=== PATIENT | male | born 1980 | race Caucasian/White ===

== ENCOUNTER 2024-09-17 08:25 | Emergency (ER) | payer BC, SELFPAY ==
[2024-09-17 08:39] VITALS: BP 138/78
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
[2024-09-17 11:14] VITALS: BP 137/85; BMI 32.1
[2024-09-17] MEDS: NSS 1000 IV (11:15)
[2024-09-17 11:23] LABS: % Basophils 0.3 % (0-2); % Immature Granulocytes 0.6 % (0-0.5); % Lymphocytes 2.4 % (20.5-51.1); % Monocytes 6.5 % (1.7-9.3); % Neutrophils 90.2 % (42.2-75.2); Absolute Immature Granulocytes 0.1 10^3/uL (0-0.05); Absolute Lymphocytes 0.2 10^3/uL (1.2-3.4); Absolute Monocytes 0.5 10^3/uL (0.1-0.6); Absolute Neutrophils 7.2 10^3/uL (1.4-6.5); Hematocrit 47.3 % (39.0-52.0); Hemoglobin 16.5 g/dL (13.0-18.0); Mean Corp Hgb Conc. 34.9 g/dL (33.0-37.0); Mean Corpuscular Hgb 32.2 pg (27.0-31.0); Mean Corpuscular Volume 92.4 fL (80.0-94.0); Mean Platelet Volume 10.7 fL (7.4-10.4); Nucleated Red Blood Cells % 0 % (-); Platelet Count 174 10^3/uL (130-400); Red Blood Cell Count 5.12 10^6/uL (4.70-6.10); White Blood Cell Count 7.9 10^3/uL (4.8-10.8)
[2024-09-17 11:36] VITALS: BP 118/72
[2024-09-17 11:40] LABS: ALT (SGPT) 26 U/L (0-50); AST (SGOT) 27 U/L (17-59); Albumin 4.5 g/dl (3.5-5.0); Alkaline Phosphatase 45 U/L (38-126); Blood Urea Nitrogen 21 mg/dl (9-20); Calcium 8.8 mg/dl (8.4-10.2); Carbon Dioxide 24 mmol/L (22-30); Chloride 103 mmol/L (98-107); Estimated Creatinine Clearance 125 ml/min; Glucose 120 mg/dl (70-99); Potassium 4.3 mmol/L (3.5-5.1); Sodium 136 mmol/L (135-145); Total Protein 7.1 g/dl (6.3-8.2); eGFR > 60.00
[2024-09-17 12:57] VITALS: BP 120/73
[2024-09-17 12:59] VITALS: BP 120/73
== END 2024-09-17 13:01 | disposition home or self-care (01) ==
LOC: EMR 08:25
PROVIDERS: Physician Assistant; EMERGENCY PHYSICIAN Student in an Organized Health Care Education/Training Program; FAMILY PHYSICIAN Nurse Practitioner Family
DX: R55 Syncope and collapse (principal); R19.7 Diarrhea, unspecified; S00.11XA Contusion of right eyelid and periocular area, initial encounter; R11.2 Nausea with vomiting, unspecified; X58.XXXA Exposure to other specified factors, initial encounter
CPT/HCPCS: 99284; 96360; 80053; 85025; 93005

== ENCOUNTER 2025-03-08 06:19 | Day surgery (SDC) | payer BC, SELFPAY | END 2025-03-08 09:53 | disposition home or self-care (01) | LOC: GI 06:19 | PROVIDERS: ATTENDING PHYSICIAN Internal Medicine Gastroenterology | DX: Z12.11 Encounter for screening for malignant neoplasm of colon (principal); K64.8 Other hemorrhoids; D12.5 Benign neoplasm of sigmoid colon | CPT/HCPCS: 45380; 88305 ==